=== PATIENT | female | born 1980 | race Caucasian/White ===

== ENCOUNTER 2016-08-14 09:27 | Emergency (ER) | payer OTHER, BC ==
[~2016-08-14] VITALS: Ht 170.2 cm; Wt 124.6 kg
[~2016-08-14 09:27] MED LIST: AMBIEN CR12.5 MG PO; ATIVAN0.5 MG PO; BENTYL10 MG PO; CARVEDILOL12.5 MG PO; CEPHALEXIN500 MG PO; COREG12.5 M1 PO; COREG3.125 M1 PO; CYMBALTA30 MG PO; DICYCLOMINE HCL20 MG PO; DILAUDID4 MG PO; DURAGESIC12 MCG TD; DURAGESIC25 MCG TD; ENDOCET 5-3251 EACH PO; ENDOCET 7.5-321 EACH PO; FAMOTIDINE40 MG PO; FENTANYL1 EAC1 TD; FENTANYL1 EAC2 TD; FENTANYL1 EAC4 TD; FENTANYL1 EAC5 TD; FERROUS SULFAT325 MG PO; FLAGYL500 MG PO; FLOVENT 22120 INHALA IH; GABAPENTIN300 MG PO; HYDROMORPHONE HC4 MG PO; IBUPROFEN800 MG PO; KEFLEX500 MG PO; LORAZEPAM0.5 MG PO; LYRICA75 MG PO; METOCLOPRAMIDE10 MG PO; METRONIDAZOLE500 MG PO; MISOPROSTOL200 MCG PO; MOTRIN800 MG PO; NEURONTIN300 MG PO; ONDANSETRON HCL4 MG PO; OXYCODONE-ACET1 EACH PO; OXYMORPHONE HCL5 MG PO; PANTOPRAZOLE SO40 MG PO; PERCOCET 5/31 TABLET PO; PERCOCET 7.51 TABLET PO; PHENERGAN25 MG PR; PREVACID30 MG PO; PRILOSEC40 MG PO; PROAIR HFA8.5 GM IH; PROBIOTIC1 EAC1 PO; PROTONIX40 MG PO; REGLAN10 MG PO; SERTRALINE HCL100 MG PO; TIZANIDINE HCL4 MG PO; TOPAMAX100 MG PO; TOPIRAMATE100 MG PO; TRAMADOL HCL50 MG PO; VANCOCIN 250 M250 MG PO; VANCOMYCIN HCL125 MG PO; VOLTAREN50 MG PO; ZANAFLEX2 M1 PO; ZANAFLEX4 M1 PO; ZANAFLEX4 MG PO; ZOFRAN ODT4 MG PO; ZOFRAN4 MG PO; ZOLOFT100 MG PO; ZOLPIDEM TART12.5 MG PO
[2016-08-14] MEDS ORDERED: FLEXERIL10 MG PO (12:21)
[2016-08-14] MEDS ORDERED: LIDODERM 5% P1 PATCH TD (12:21)
[2016-08-14 12:27] VITALS: BP 118/79
== END 2016-08-14 12:39 | disposition home or self-care (01) ==
LOC: EME 09:27 → EDBD 09:27 → EME 12:39
DX: S20.212A Contusion of left front wall of thorax, initial encounter (principal); S16.1XXA Strain of muscle, fascia and tendon at neck level, initial encounter; S40.022A Contusion of left upper arm, initial encounter; M79.605 Pain in left leg; V49.10XA Passenger injured in collision with unspecified motor vehicles in nontraffic accident, initial encounter; Z85.41 Personal history of malignant neoplasm of cervix uteri
CPT/HCPCS: 71020; 99281; 99284; J3010

== ENCOUNTER 2017-08-19 02:32 | Emergency (ER) | payer SELFPAY ==
[~2017-08-19] VITALS: Ht 167.6 cm; Wt 124.8 kg
[~2017-08-19 02:32] MED LIST changes: +FLEXERIL10 MG PO; +LIDODERM 5% P1 PATCH TD
[2017-08-19 03:07] LABS: HEMATOCRIT 43.5 % (36.0-46.0); HEMOGLOBIN 14.6 G/DL (11.9-15.5); MCH 28.4 PG (29.0-34.0); MCHC 33.6 G/DL (30.0-36.0); MCV 84.6 FL (83-99); PLATELET COUNT 319 K/uL (156-360); RBC DIS.WIDTH-CV 13.8 % (11.8-14.6); RBC DIS.WIDTH-SD 42.7 % (39-53); RED BLOOD COUNT 5.14 M/uL (3.80-5.20); WHITE BLOOD COUNT 12.7 K/uL (4.1-10.2)
[2017-08-19 03:15] LABS: ALBUMIN 4.3 g/dL (3.2-4.8); CHLORIDE 107 mEq/L (99-109); POTASSIUM 3.8 mEq/L (3.7-5.4); SODIUM 139 mEq/L (136-147)
[2017-08-19 03:17] LABS: GLUCOSE 124 mg/dL (70-99)
[2017-08-19 03:18] LABS: TOTAL PROTEIN 7.2 g/dL (6.4-8.3)
[2017-08-19 03:19] LABS: TOTAL BILIRUBIN 0.5 mg/dL (0.0-1.0)
[2017-08-19 03:21] LABS: ALKALINE PHOSPHATASE 91 IU/L (3-129); CREATININE 0.8 mg/dL (0.6-1.3); GFR ESTIMATE (CALCULATED) > 59 mL/min/
[2017-08-19 03:22] LABS: UREA NITROGEN (BUN) 5 mg/dL (9-23)
[2017-08-19 03:23] LABS: AST (GOT) 15 IU/L (2-34)
[2017-08-19 03:24] LABS: ALT (GPT) 16 IU/L (3-49); LIPASE 30 U/L (1.0-51.0)
[2017-08-19 03:30] LABS: QUANTITATIVE HCG < 4.0 MIU/ML
[2017-08-19] MEDS ORDERED: NORCO 5/3251 TABLET PO (06:09)
[2017-08-19] MEDS ORDERED: ZOFRAN4 MG PO (06:09)
[2017-08-19] MEDS ORDERED: BENTYL20 MG PO (06:09)
[2017-08-19 06:18] LABS: APPEARANCE SL.HAZY ((CLEAR)); BILIRUBIN NEGATIVE; BLOOD NEGATIVE; COLOR YELLOW ((YELLOW)); GLUCOSE (STRIP) NEGATIVE; KETONES NEGATIVE; LEUKOCYTES NEGATIVE; NITRITE NEGATIVE; PROTEIN (STRIP) NEGATIVE; SPECIFIC GRAVITY > 1.060 (1.000-1.030); UROBILINOGEN 0.2 MG/DL (0.2-1.0)
[2017-08-19 06:21] LABS: BACTERIA RARE /HPF; EPITHELIAL CELLS 3+ /HPF; MUCUS TRACE /LPF; RED BLOOD CELLS 0-5 /HPF (0-5); UCUL ADDED? NO; WHITE BLOOD CELLS 0-5 /HPF (0-5)
[2017-08-19 07:39] VITALS: BP 130/84
[2017-08-20] MEDS ORDERED: DILAUDID4 MG PO (13:56)
[2017-08-20] MEDS ORDERED: DURAGESIC25 MCG TD (13:56)
[2017-08-20] MEDS ORDERED: PROAIR HFA8.5 GM IH (14:10)
== END 2017-08-19 07:43 | disposition home or self-care (01) ==
LOC: EME 02:32
DX: R10.84 Generalized abdominal pain (principal); R11.2 Nausea with vomiting, unspecified; R19.7 Diarrhea, unspecified; R93.5 Abnormal findings on diagnostic imaging of other abdominal regions, including retroperitoneum; K43.9 Ventral hernia without obstruction or gangrene; J90 Pleural effusion, not elsewhere classified; E86.0 Dehydration; Z85.41 Personal history of malignant neoplasm of cervix uteri; Z90.710 Acquired absence of both cervix and uterus
CPT/HCPCS: 74177; 80053; 81003; 83690; 84702; 85027; 99281; 99284; J2270; J2405; J3010; J7030

== ENCOUNTER 2017-08-24 10:36 | Day surgery (SDC) | payer BC ==
[~2017-08-24] VITALS: Ht 167.6 cm; Wt 124.8 kg
[~2017-08-24 10:36] MED LIST changes: +BENTYL20 MG PO; +NORCO 5/3251 TABLET PO
[2017-08-24 10:54] VITALS: BP 127/81
[2017-08-24] MEDS ORDERED: NORCO 5/3251 TABLET PO (15:07)
[2017-08-24 16:35] VITALS: BP 120/64
[2017-08-24 18:00] VITALS: BP 122/62
== END 2017-08-24 18:17 | disposition home or self-care (01) ==
LOC: SDC 10:36
DX: K80.10 Calculus of gallbladder with chronic cholecystitis without obstruction (principal); E66.9 Obesity, unspecified; Z68.41 Body mass index [BMI] 40.0-44.9, adult; K66.0 Peritoneal adhesions (postprocedural) (postinfection); K58.9 Irritable bowel syndrome, unspecified; Z86.19 Personal history of other infectious and parasitic diseases; Z85.41 Personal history of malignant neoplasm of cervix uteri; J45.909 Unspecified asthma, uncomplicated; K21.9 Gastro-esophageal reflux disease without esophagitis; Z83.3 Family history of diabetes mellitus; Z82.5 Family history of asthma and other chronic lower respiratory diseases
CPT/HCPCS: 88304; J0330; J0690; J1100; J1170; J1885; J2405; J3010; J3475; Q0175